=== PATIENT | female | born 2005 | race African-American/Black ===

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

== ENCOUNTER → 2023-08-08 | Outpatient (CLI) | payer OTHER ==
[2023-08-10 01:08] LABS: CHLAMYDIA TRACHOMATIS, NAA Negative (Negative)
== END ==
LOC: LAB 12:08 → LAB SHORT 12:08
PROVIDERS: Physician Assistant
DX: N39.0 Urinary tract infection, site not specified (principal); Z20.2 Contact with and (suspected) exposure to infections with a predominantly sexual mode of transmission
CPT/HCPCS: 87077; 87086; 87186; 87491; 87591

== ENCOUNTER 2024-04-05 11:29 | Day surgery (SDC) | payer OTHER ==
[~2024-04-05] VITALS: Ht 162.6 cm; Wt 72.9 kg
[~2024-04-05 11:29] MED LIST changes: +Lactated Ringer's 1,000 ML IV ONE; +Ropivacaine 0.5% HCL/PF 5 MG/ML 30ML Vial ONE
[2024-04-05] MEDS ORDERED: HYDROmorphone HCl/Pf 1MG SYR ONE (11:55)
[2024-04-05] MEDS ORDERED: Midazolam HCl 1MG / ML 2ML Vial ONE (11:55)
[2024-04-05] MEDS ORDERED: propofoL 40 ML IV ONE (11:55)
[2024-04-05] MEDS ORDERED: Dexmedetomidine HCL 200 MCG / 2 ML ONE (12:00)
--- NOTE | 2024-04-05 12:12 | NUR ---
04/05/24 1212 Valerie Cuellar CRNA NOTIFIED THAT PATIENT HAD ECHO AT 12 YEARS OLD D/T SUSPECTED MURMUR BUT PATIENT STATES SHE WAS CLEARED OK TO COMPETE IN SPORTS AND NO FOLLOW UP NEEDED
[2024-04-05] MEDS ORDERED: CeFAZolin Sodium 2,000 MG VIAL ONE (12:17)
[2024-04-05] MEDS ORDERED: NS 50 ML IV ONE (12:18)
[2024-04-05] MEDS ORDERED: Tranexamic Acid 100 ML IV ONE (12:20)
[2024-04-05] MEDS ORDERED: Lactated Ringer's 1,000 ML IV ONE (12:28)
[2024-04-05] MEDS ORDERED: Dexamethasone Sod Phos 10 MG/ML 1ML VIAL ONE (12:49)
[2024-04-05] MEDS ORDERED: Ondansetron HCl 2 MG / ML 2ML Vial ONE (12:49)
[2024-04-05] MEDS ORDERED: Lidocaine 1%-Epineph 1:100000 20 ML MDV INJ ONE (13:06)
[2024-04-05] MEDS ORDERED: EPINEPhrine HCl 1 MG/ML 1ML Amp XX ONE (13:06)
--- NOTE | 2024-04-05 13:13 | NUR ---
04/05/24 1313 Sahra Vargas 1ML OF EPI (1MG/ML) ADDED TO THE FIRST THREE BAGS OF LR FOR IRRIGATION AT THE OPSITE. 3ML TOTAL. SINGLE DOSE OF TXA GIVEN IN OR BY ANESTHESIA AT 1300.
[2024-04-05] MEDS ORDERED: OxyCODONE HCL 5 MG TAB ONE (15:44)
[2024-04-05 15:57] VITALS: BP 124/70
--- NOTE | 2024-04-05 17:00 | NUR ---
04/05/24 1700 Mayra Moses PT STATED PAIN WAS TOLERABLE AND DENIED NAUSEA PRIOR TO DISCHARGE. RN WENT OVER DISCHARGE INSTRUCTIONS UNTIL ALL QUESTIONS WERE ANSWERED. PT TAKEN TO DAD'S VEHICLE VIA WHEELCHAIR. RN VARIFIED RX WAS ESCRIPTED TO [facility].
== END 2024-04-05 16:58 | disposition home or self-care (01) ==
LOC: ORSCSDS 11:29
PROVIDERS: Orthopaedic Surgery Sports Medicine
PROC: 0YQ Anatomical Regions, Lower Extremities, Repair (ICD-10-PCS; principal; 2024-04-05 13:00)
DX: S83.32XA Tear of articular cartilage of left knee, current, initial encounter (principal); X50.1XXA Overexertion from prolonged static or awkward postures, initial encounter
CPT/HCPCS: A9270; C1762; J0171; J0690; J1100; J1170; J2250; J2405; J2704; J2795; J7120

== ENCOUNTER → 2024-11-16 | Outpatient (CLI) | payer OTHER ==
[~2024-11-16] MED LIST changes: -Lactated Ringer's 1,000 ML IV ONE; -Ropivacaine 0.5% HCL/PF 5 MG/ML 30ML Vial ONE
[2024-11-16 14:16] LABS: Candida Group, PCR NOT DETECTED (NOT DETECT); Candida glabrata-krusei, PCR NOT DETECTED (NOT DETECT)
[2024-11-16 14:32] LABS: Bacterial Vaginosis PCR Positive (NEGATIVE)
== END ==
LOC: LAB SHORT 11:50 → LAB 11:50
PROVIDERS: Family Medicine
DX: N89.8 Other specified noninflammatory disorders of vagina (principal)
CPT/HCPCS: 81515

== ENCOUNTER → 2025-01-05 | Outpatient (CLI) | payer OTHER ==
[2025-01-05 14:09] LABS: Candida glabrata-krusei, PCR NOT DETECTED (NOT DETECT)
[2025-01-05 14:10] LABS: Bacterial Vaginosis PCR Positive (NEGATIVE); Candida Group, PCR DETECTED (NOT DETECT)
[2025-01-14 09:03] LABS: HPV GENOTYPE 16 BY TMA Not Detected; HPV GENOTYPE 18/45 BY TMA Not Detected; HPV HIGH RISK BY TMA Detected; HPV SOURCE Cervical; HPVG SOURCE Cervical
== END ==
LOC: LAB SHORT 11:33 → LAB 11:33
PROVIDERS: Family Medicine
DX: N89.8 Other specified noninflammatory disorders of vagina (principal); R30.0 Dysuria; Z12.4 Encounter for screening for malignant neoplasm of cervix
CPT/HCPCS: 81515; 87086; 87624; 87625; G0123